=== PATIENT | female | born 1955 ===

== ENCOUNTER → 2023-09-20 11:28 | Outpatient (REF) | payer MEDICARE, SELFPAY | LOC: HWWDC 11:28 | PROVIDERS: ATTENDING PHYSICIAN Family Medicine | DX: Z12.31 Encounter for screening mammogram for malignant neoplasm of breast (principal) | CPT/HCPCS: 77063; 77067 ==

== ENCOUNTER → 2024-09-28 11:03 | Outpatient (REF) | payer MEDICARE, SELFPAY | LOC: HWWDC 11:03 | PROVIDERS: ATTENDING PHYSICIAN Family Medicine | DX: Z12.31 Encounter for screening mammogram for malignant neoplasm of breast (principal) | CPT/HCPCS: 77063; 77067 ==